=== PATIENT | male | born 1945 | race African-American/Black ===

== ENCOUNTER 2019-05-03 16:55 | Inpatient (IN) | payer MEDICARE, OTHER ==
--- NOTE | 2019-05-03 17:03 | ER Document Report ---
ED Medical Screen (RME) - General Chief Complaint: Abnormal Lab Results Stated Complaint: ABNORMAL LABS Time Seen by Provider: 05/03/19 17:01 Mode of Arrival: Ambulatory Information source: Patient Notes: 78-year-old male presented to ED for abnormal labs. He was sent over here for a low H&H. He states that he was told he needed to come to the emergency room to possibly get blood. Patient is alert and oriented respirations regular nonlabored speaking in full sentences. He states he has not seen any blood when he urinates or has bowel movements. Patient had blood work done in the triage and then be seen by 1 of the providers. I have greeted and performed a rapid initial assessment of this patient. A comprehensive ED assessment and evaluation of the patient, analysis of test results and completion of medical decision making process will be conducted by an additional ED providers. TRAVEL OUTSIDE OF THE [place] IN LAST 30 DAYS: No - Related Data Allergies/Adverse Reactions: No Known Allergies Allergy (Verified 02/25/18 11:47) Past Medical History - Past Medical History Cardiac Medical History: Reports: Hx Heart Attack, Hx Hypertension Renal/ Medical History: Denies: Hx Peritoneal Dialysis Psychiatric Medical History: Denies: Hx Depression Past Surgical History: Reports: Hx Orthopedic Surgery - right leg - Immunizations Hx Diphtheria, Pertussis, Tetanus Vaccination: Yes Physical Exam - Vital signs Vitals: Temp Pulse Resp BP Pulse Ox 97.5 F 88 16 119/48 L 100 05/03/19 16:59 05/03/19 16:59 05/03/19 16:59 05/03/19 16:59 05/03/19 16:59 Course - Vital Signs Vital signs: Temp Pulse Resp BP Pulse Ox 97.5 F 88 16 119/48 L 100 05/03/19 16:59 05/03/19 16:59 05/03/19 16:59 05/03/19 16:59 05/03/19 16:59
[2019-05-03 17:52] LABS: HEMATOCRIT 19.9 % (37.9-51.0); MEAN CORPUSCULAR HEMOGLOBIN 17.9 pg (27.0-33.4); MEAN CORPUSCULAR HGB CONC 28.7 g/dL (32.0-36.0); PLATELET COUNT 457 10^3/uL (150-450); RED BLOOD COUNT 3.19 10^6/uL (4.35-5.55); RED CELL DISTRIBUTION WIDTH 24.3 % (11.5-14.0); WHITE BLOOD COUNT 8.9 10^3/uL (4.0-10.5)
[2019-05-03 17:56] LABS: HEMOGLOBIN 5.7 g/dL (13.5-17.0)
[2019-05-03] MEDS ORDERED: NORMAL SALINE 250 ML IV PRN (18:04)
--- NOTE | 2019-05-03 18:06 | ER Document Report ---
ED General - General Chief Complaint: Abnormal Lab Results Stated Complaint: ABNORMAL LABS Time Seen by Provider: 05/03/19 17:01 Mode of Arrival: Ambulatory TRAVEL OUTSIDE OF THE [place] IN LAST 30 DAYS: No - HPI Patient complains to provider of: abnormal labs Onset: This morning - pt. had labs done in [place] yesterday and was called today to go to the ED as his blood levels were low. - Related Data Allergies/Adverse Reactions: No Known Allergies Allergy (Verified 05/03/19 17:03) Past Medical History - General Information source: Patient - Social History Smoking Status: Current Every Day Smoker Chew tobacco use (# tins/day): No Frequency of alcohol use: None Drug Abuse: None Family History: DM, Hypertension Patient has suicidal ideation: No Patient has homicidal ideation: No - Past Medical History Cardiac Medical History: Reports: Hx Heart Attack, Hx Hypertension Renal/ Medical History: Denies: Hx Peritoneal Dialysis Psychiatric Medical History: Denies: Hx Depression Past Surgical History: Reports: Hx Orthopedic Surgery - right leg - Immunizations Hx Diphtheria, Pertussis, Tetanus Vaccination: Yes Review of Systems - Review of Systems Constitutional: No symptoms reported EENT: No symptoms reported Cardiovascular: No symptoms reported Respiratory: No symptoms reported Gastrointestinal: No symptoms reported Musculoskeletal: No symptoms reported Neurological/Psychological: No symptoms reported -: Yes All other systems reviewed and negative Physical Exam - Vital signs Vitals: Temp Pulse Resp BP Pulse Ox 97.5 F 88 16 119/48 L 100 05/03/19 16:59 05/03/19 16:59 05/03/19 16:59 05/03/19 16:59 05/03/19 16:59 - General General appearance: Appears well In distress: None - HEENT Head: Normocephalic Pupils: PERRL Pharynx: Normal Neck: Normal - Respiratory Respiratory status: No respiratory distress Breath sounds: Normal - Cardiovascular Rhythm: Regular Heart sounds: Normal auscultation Murmur: No - Abdominal Bowel sounds: Normal Tenderness: Nontender - Rectal Tenderness: No Stool: Heme positive Hemorrhoids: None Prostate: Normal - Extremities General upper extremity: Normal inspection General lower extremity: Normal inspection - Neurological Neuro grossly intact: Yes Cognition: Normal Orientation: AAOx4 Speech: Normal Course - Re-evaluation Re-evalutation: 05/03/19 18:17 pt's exam unchanged from priors -- the lab called and said pt's Hgb was 5.7. I will order blood for this pt. and call hospitalist for admission. - Vital Signs Vital signs: Temp Pulse Resp BP Pulse Ox 97.5 F 88 18 122/83 100 05/03/19 16:59 05/03/19 16:59 05/03/19 18:01 05/03/19 18:01 05/03/19 18:01 05/03/19 18:45 I have spoken to Dr. Monk and he will admit the pt - Laboratory Result Diagrams: 05/03/19 17:24 05/03/19 17:24 Laboratory results interpreted by me: 05/03/19 05/03/19 05/03/19 17:24 17:24 17:24 RBC 3.19 L Hgb 5.7 L Hct 19.9 L MCV 62 L MCH 17.9 L MCHC 28.7 L RDW 24.3 H Plt Count 457 H AST 15 L Alkaline Phosphatase 139 H Crossmatch See Detail - EKG Interpretation by Nv EKG shows normal: Sinus rhythm Rate: Normal Rhythm: NSR - nsr without acute change - Consults tzach monk Time consulted: 18:47 Consulted provider: will come to ER Critical Care Note - Critical Care Note Total time excluding time spent on procedures (mins): 30 Discharge - Discharge Clinical Impression: Severe anemia Condition: Fair Disposition: ADMITTED OBSERVATION Admitting Provider: Aleshia (Hospitalist) Unit Admitted: Medical Floor
[2019-05-03 18:18] LABS: ABSOLUTE LYMPHOCYTES# (MANUAL) 2.7 10^3/uL (0.5-4.7); ANISOCYTOSIS 3+; BASOPHILS % (MANUAL) 2 % (0-2); EOSINOPHILS % (MANUAL) 6 % (0-6); HYPOCHROMASIA 3+; LYMPHOCYTES % (MANUAL) 29 % (13-45); MONOCYTES % (MANUAL) 11 % (3-13); PLATELET COMMENT INCREASED; SEGMENTED NEUTROPHILS % (MAN) 51 % (42-78); TARGET CELLS 1+; TOTAL CELLS COUNTED 100
[2019-05-03 18:20] LABS: MEAN CORPUSCULAR VOLUME 62 fl (80-97)
[2019-05-03 18:26] LABS: ALBUMIN 4.1 g/dL (3.5-5.0); ALKALINE PHOSPHATASE 139 U/L (38-126); ANION GAP 10 (5-19); ASPARTATE AMINO TRANSFERASE 15 U/L (17-59); BILIRUBIN,DIRECT 0.1 mg/dL (0.0-0.4); BILIRUBIN,TOTAL 0.5 mg/dL (0.2-1.3); BLOOD UREA NITROGEN 19 mg/dL (7-20); CALCIUM 9.1 mg/dL (8.4-10.2); CARBON DIOXIDE 25 mmol/L (22-30); CHLORIDE 105 mmol/L (98-107); GLUCOSE 97 mg/dL (75-110); POTASSIUM 4.9 mmol/L (3.6-5.0); TOTAL PROTEIN 7.5 g/dL (6.3-8.2)
[2019-05-03] MEDS ORDERED: OXYCODONE-ACETAMINOPHEN 5-325 MG TABLET PO PRN (18:44)
[2019-05-03] MEDS ORDERED: ONDANSETRON HCL INJ/PF 4 MG/2 ML SDV IV PRN (18:44)
[2019-05-03] MEDS ORDERED: ACETAMINOPHEN 325 MG TABLET PO PRN (18:44)
--- NOTE | 2019-05-03 18:54 | PDOC H&P ---
History of Present Illness History of Present Illness: LOLY KAMINSKI is a 73 year old male past medical history of COPD, hypertension, sent to ED by home health for evaluation of abnormal labs. Patient endorsing history of melena for the last year, but has not been evaluated by GI and is not on supplemental ferrous sulfate. He is stating that he had an upper GI endoscopy several years ago and was told it was negative. He is denying any personal or family history of GI malignancy. He is endorsing some weight changes but dnies any, fever, chills, nausea, vomiting, diarrhea, constipation or any urinary symptoms, hematemesis, hemoptysis, nosebleeds, hematuria or hematochezia. In ED he was found to have a hemoglobin of 5.7. Blood Hemoccult positive. Hospitalist consulted for admission. Past Medical History Cardiac Medical History: Reports: Myocardial Infarction, Hypertension Psychiatric Medical History: Denies: Depression Past Surgical History Past Surgical History: Reports: Orthopedic Surgery - right leg Social History Smoking Status: Current Every Day Smoker Electronic Cigarette use?: No Frequency of Alcohol Use: None Hx Recreational Drug Use: No Drugs: None Hx Prescription Drug Abuse: No Family History Family History: DM, Hypertension Parental Family History Reviewed: Yes Children Family History Reviewed: Yes Sibling(s) Family History Reviewed.: Yes Medication/Allergy Home Medications: Amoxicillin/Potassium Clav [Augmentin 500-125 Tablet] 1 each PO TID 4 Days #12 tablet 03/04/18 Azithromycin [Zithromax 250 mg Tablet] 500 mg PO QPM #3 tablet 03/04/18 Clopidogrel Bisulfate [Plavix 75 mg Tablet] 75 mg PO DAILY #30 tablet 03/04/18 Famotidine [Pepcid 20 mg Tablet] 20 mg PO Q12 #60 tablet 03/04/18 Lisinopril [Prinivil 5 mg Tablet] 2.5 mg PO Q12 #60 tablet 03/04/18 Metoprolol Tartrate [Lopressor 50 mg Tablet] 50 mg PO Q12 #60 tablet 03/04/18 Allergies/Adverse Reactions: No Known Allergies Allergy (Verified 05/03/19 17:03) Review of Systems Review of Systems: as per hpi Physical Exam Vital Signs: Temp Pulse Resp BP Pulse Ox 97.5 F 88 18 122/83 100 05/03/19 16:59 05/03/19 16:59 05/03/19 18:01 05/03/19 18:01 05/03/19 18:01 Intake & Output 05/02/19 05/03/19 05/04/19 06:59 06:59 06:59 Weight 46.1 kg General appearance: PRESENT: no acute distress, thin, well-nourished Head exam: PRESENT: atraumatic, normocephalic Eye exam: PRESENT: conjunctiva pink, EOMI, PERRLA. ABSENT: scleral icterus Ear exam: PRESENT: normal external ear exam Mouth exam: PRESENT: moist, tongue midline Neck exam: ABSENT: carotid bruit, JVD, lymphadenopathy, thyromegaly Respiratory exam: PRESENT: clear to auscultation yoile. ABSENT: rales, rhonchi, wheezes Cardiovascular exam: PRESENT: RRR. ABSENT: diastolic murmur, rubs, systolic murmur Pulses: PRESENT: normal dorsalis pedis pul Vascular exam: PRESENT: normal capillary refill GI/Abdominal exam: PRESENT: normal bowel sounds, soft. ABSENT: distended, guarding, mass, organolmegaly, rebound, tenderness Rectal exam: PRESENT: deferred Extremities exam: PRESENT: full ROM. ABSENT: calf tenderness, clubbing, pedal edema Neurological exam: PRESENT: alert, awake, oriented to person, oriented to place, oriented to time, oriented to situation, CN II-XII grossly intact. ABSENT: motor sensory deficit Psychiatric exam: PRESENT: appropriate affect, normal mood. ABSENT: homicidal ideation, suicidal ideation Skin exam: PRESENT: dry, intact, warm. ABSENT: cyanosis, rash Results Laboratory Results: 05/03/19 17:24 05/03/19 17:24 05/03/19 05/03/19 05/03/19 17:24 17:24 17:24 WBC 8.9 RBC 3.19 L Hgb 5.7 L Hct 19.9 L MCV 62 L MCH 17.9 L MCHC 28.7 L RDW 24.3 H Plt Count 457 H Seg Neutrophils % Not Reportable Sodium 140.2 Potassium 4.9 Chloride 105 Carbon Dioxide 25 Anion Gap 10 BUN 19 Creatinine 0.93 Est GFR ( Amer) > 60 Glucose 97 Calcium 9.1 Total Bilirubin 0.5 AST 15 L Alkaline Phosphatase 139 H Total Protein 7.5 Albumin 4.1 Blood Type O POSITIVE Antibody Screen NEGATIVE Assessment and Plan - Diagnosis (1) Severe anemia Is this a current diagnosis for this admission?: Yes Plan: Likely due to upper GI bleed. Denies any history of malignancy. Endorsing weight changes. Admit to [facility], PRBC transfusion, volume resuscitation, consult surgery/GI for upper and lower GI endoscopy. (2) COPD (chronic obstructive pulmonary disease) Is this a current diagnosis for this admission?: Yes Plan: Not on home O2. Does not seem to be acutely exacerbated. SPO2 within normal limits on room air. Supplemental oxygen, PRN DuoNeb's. (3) Hypertension Qualifiers: Is this a current diagnosis for this admission?: Yes Plan: Euvolemic. Normotensive. Monitor vitals. Home meds are metoprolol and lisinopril. Heart home meds. Adjust meds as needed. Follow-up with PCP. (4) Tobacco abuse Is this a current diagnosis for this admission?: Yes Plan: Counseled on quitting. NicoDerm patch provided.
[2019-05-03] MEDS: IPRATROPIUM/ALBUTEROL 0.5-2.5 MG/3 ML AMPUL NEB SCH (20:28)
[2019-05-03] MEDS: NORMAL SALINE 1000 ML 1,000 ML IV PRN (21:20)
[2019-05-03] MEDS: PANTOPRAZOLE SODIUM 40 MG VIAL IV SCH (23:19)
[2019-05-04 02:37] LABS: HEMATOCRIT 28.5 % (37.9-51.0); MEAN CORPUSCULAR HEMOGLOBIN 22.7 pg (27.0-33.4); MEAN CORPUSCULAR HGB CONC 31.7 g/dL (32.0-36.0); PLATELET COUNT 331 10^3/uL (150-450); RED BLOOD COUNT 3.98 10^6/uL (4.35-5.55); RED CELL DISTRIBUTION WIDTH 29.9 % (11.5-14.0); WHITE BLOOD COUNT 8.2 10^3/uL (4.0-10.5)
[2019-05-04 02:41] LABS: MEAN CORPUSCULAR VOLUME 72 fl (80-97)
[2019-05-04 03:04] LABS: ABSOLUTE LYMPHOCYTES# (MANUAL) 1.8 10^3/uL (0.5-4.7); ABSOLUTE MONOCYTES # (MANUAL) 0.3 10^3/uL (0.1-1.4); BAND NEUTROPHILS % (MANUAL) 3 % (3-5); BASOPHILS % (MANUAL) 0 % (0-2); EOSINOPHILS % (MANUAL) 2 % (0-6); LYMPHOCYTES % (MANUAL) 22 % (13-45); MONOCYTES % (MANUAL) 4 % (3-13); SEGMENTED NEUTROPHILS % (MAN) 69 % (42-78); TOTAL CELLS COUNTED 100
[2019-05-04 03:09] LABS: HYPOCHROMASIA 2+
[2019-05-04 03:10] LABS: ANISOCYTOSIS 4+; BURR CELLS SLIGHT; OVALOCYTES SLIGHT; POIKILOCYTOSIS SLIGHT; SCHISTOCYTES SLIGHT; TEAR DROP CELLS SLIGHT
[2019-05-04 03:11] LABS: PLATELET COMMENT ADEQUATE
[2019-05-04] MEDS: NORMAL SALINE 1000 ML 1,000 ML IV PRN (05:35)
[2019-05-04 06:44] LABS: HEMATOCRIT 27.9 % (37.9-51.0); HEMOGLOBIN 8.9 g/dL (13.5-17.0); MEAN CORPUSCULAR HEMOGLOBIN 22.9 pg (27.0-33.4); MEAN CORPUSCULAR HGB CONC 32.1 g/dL (32.0-36.0); MEAN CORPUSCULAR VOLUME 71 fl (80-97); PLATELET COUNT 319 10^3/uL (150-450); RED CELL DISTRIBUTION WIDTH 29.3 % (11.5-14.0); WHITE BLOOD COUNT 10.2 10^3/uL (4.0-10.5)
[2019-05-04 06:48] LABS: INTERNATIONAL RATION (INR) 1.04; PROTHROMBIN TIME 13.6 SEC (11.4-15.4)
[2019-05-04 07:07] LABS: ALBUMIN 3.5 g/dL (3.5-5.0); ALKALINE PHOSPHATASE 116 U/L (38-126); ANION GAP 8 (5-19); ASPARTATE AMINO TRANSFERASE 14 U/L (17-59); BILIRUBIN,DIRECT 0.2 mg/dL (0.0-0.4); BLOOD UREA NITROGEN 15 mg/dL (7-20); CALCIUM 8.8 mg/dL (8.4-10.2); CARBON DIOXIDE 23 mmol/L (22-30); CHLORIDE 111 mmol/L (98-107); POTASSIUM 5.2 mmol/L (3.6-5.0); TOTAL PROTEIN 6.7 g/dL (6.3-8.2)
[2019-05-04 07:10] LABS: ABSOLUTE LYMPHOCYTES# (MANUAL) 1.5 10^3/uL (0.5-4.7); ABSOLUTE MONOCYTES # (MANUAL) 0.4 10^3/uL (0.1-1.4); BASOPHILS % (MANUAL) 0 % (0-2); EOSINOPHILS % (MANUAL) 2 % (0-6); GLUCOSE 68 mg/dL (75-110); LYMPHOCYTES % (MANUAL) 15 % (13-45); MONOCYTES % (MANUAL) 4 % (3-13); SEGMENTED NEUTROPHILS % (MAN) 79 % (42-78); TOTAL CELLS COUNTED 100
[2019-05-04 07:12] LABS: HYPOCHROMASIA 2+; POLYCHROMASIA 1+
[2019-05-04 07:13] LABS: ANISOCYTOSIS 4+; PLATELET COMMENT ADEQUATE; POIKILOCYTOSIS SLIGHT; TARGET CELLS SLIGHT; TEAR DROP CELLS SLIGHT
[2019-05-04] MEDS: IPRATROPIUM/ALBUTEROL 0.5-2.5 MG/3 ML AMPUL NEB SCH ×4 (07:38→20:12)
[2019-05-04 09:20] LABS: PATH REVIEW PATHOLOGIST REVIEWED
[2019-05-04] MEDS ORDERED: DEXTROSE 40% GEL 15 GM TUBE PO PRN ×2 (12:10)
[2019-05-04] MEDS ORDERED: DEXTROSE 50%-WATER 25 GM/50 ML DISP.SYRIN IV PRN ×2 (12:10)
[2019-05-04] MEDS ORDERED: GLUCAGON,HUMAN RECOMB 1 MG INJ SUBCUT PRN (12:10)
--- NOTE | 2019-05-04 12:23 | PDOC CONSULTATION ---
Consultation Consult Date: 05/04/19 Provider Consulted: ALEXANDRA MARSH Consult reason:: anemia due to GI bleed History of Present Illness Admission Date/PCP: 05/03/19 18:51 History of Present Illness: LOLY KAMINSKI is a 73 year old male who had a history of CT last year and was given beta-masoud and Plavix. He claims he never check his stool but apparently has some melena for quite some time. He had a near syncopal episode about a week ago. He went to his primary physician who did a blood test and noted that hemoglobin was low and sent to the ED. He admits to having loss of weight of about 13 pounds from last year. Otherwise he claims he feels good. His stool is Hemoccult positive. He denies any abdominal pains nausea or vomiting. Past Medical History Cardiac Medical History: Reports: Myocardial Infarction, Hypertension Psychiatric Medical History: Denies: Depression Past Surgical History Past Surgical History: Reports: Orthopedic Surgery - right leg Social History Smoking Status: Current Every Day Smoker Electronic Cigarette use?: No Frequency of Alcohol Use: None Hx Recreational Drug Use: No Drugs: None Hx Prescription Drug Abuse: No Family History Family History: DM, Hypertension Parental Family History Reviewed: Yes Children Family History Reviewed: No Sibling(s) Family History Reviewed.: No Medication/Allergy Home Medications: Clopidogrel Bisulfate [Plavix 75 mg Tablet] 75 mg PO DAILY #30 tablet 03/04/18 Metoprolol Tartrate [Lopressor 50 mg Tablet] 50 mg PO Q12 #60 tablet 03/04/18 Lisinopril [Prinivil 5 mg Tablet] 5 mg PO DAILY 05/03/19 Allergies/Adverse Reactions: No Known Allergies Allergy (Verified 05/03/19 17:03) Review of Systems Constitutional: PRESENT: as per HPI Cardiovascular: PRESENT: other - No chest pains Respiratory: PRESENT: cough - Mild cough Gastrointestinal: PRESENT: melena Neurological: PRESENT: other - Complaint of lightheadedness about a week ago when the had a near syncopal episode Physical Exam Vital Signs: Temp Pulse Resp BP Pulse Ox 97.6 F 83 16 126/54 H 100 05/04/19 03:10 05/04/19 11:36 05/04/19 11:36 05/04/19 03:10 05/04/19 11:36 Intake & Output 05/03/19 05/04/19 05/05/19 06:59 06:59 06:59 Intake Total 1125 Output Total 400 Balance 725 Weight 44.5 kg General appearance: PRESENT: no acute distress Head exam: PRESENT: atraumatic Eye exam: PRESENT: conjunctiva pale Mouth exam: PRESENT: moist Neck exam: PRESENT: full ROM Respiratory exam: PRESENT: clear to auscultation yolie Cardiovascular exam: PRESENT: RRR Pulses: PRESENT: normal radial pulses Vascular exam: PRESENT: normal capillary refill GI/Abdominal exam: PRESENT: soft - Nontender Rectal exam: PRESENT: deferred Extremities exam: PRESENT: full ROM Musculoskeletal exam: PRESENT: ambulatory Neurological exam: PRESENT: alert, oriented to person, oriented to place, oriented to time, oriented to situation Psychiatric exam: PRESENT: appropriate affect Results Laboratory Results: 05/04/19 06:27 05/04/19 06:27 05/03/19 05/03/19 05/03/19 17:24 17:24 17:24 WBC 8.9 RBC 3.19 L Hgb 5.7 L Hct 19.9 L MCV 62 L MCH 17.9 L MCHC 28.7 L RDW 24.3 H Plt Count 457 H Seg Neutrophils % Not Reportable Sodium 140.2 Potassium 4.9 Chloride 105 Carbon Dioxide 25 Anion Gap 10 BUN 19 Creatinine 0.93 Est GFR ( Amer) > 60 Glucose 97 Calcium 9.1 Magnesium Total Bilirubin 0.5 AST 15 L Alkaline Phosphatase 139 H Total Protein 7.5 Albumin 4.1 Blood Type O POSITIVE Antibody Screen NEGATIVE 05/04/19 05/04/19 05/04/19 02:08 06:27 06:27 WBC 8.2 10.2 RBC 3.98 L 3.90 L Hgb 9.0 L D 8.9 L Hct 28.5 L 27.9 L MCV 72 L D 71 L MCH 22.7 L 22.9 L MCHC 31.7 L 32.1 RDW 29.9 H 29.3 H Plt Count 331 319 Seg Neutrophils % Not Reportable Not Reportable Sodium 142.3 Potassium 5.2 H Chloride 111 H Carbon Dioxide 23 Anion Gap 8 BUN 15 Creatinine 0.81 Est GFR ( Amer) > 60 Glucose 68 L Calcium 8.8 Magnesium 2.3 Total Bilirubin 3.0 H D AST 14 L Alkaline Phosphatase 116 Total Protein 6.7 Albumin 3.5 Blood Type Antibody Screen 05/03/19 17:24 Troponin I < 0.012 Assessment & Plan - Diagnosis (1) Anemia Is this a current diagnosis for this admission?: Yes (2) GI bleed Is this a current diagnosis for this admission?: Yes (3) Hypertension Qualifiers: Is this a current diagnosis for this admission?: Yes - Time Time Spent: 30 to 50 Minutes - Inpatient Certification Medical Necessity: Need Close Monitoring Due to Risk of Patient Decompensation, Need for Surgery - Plan Summary Plan Summary: There is a 73-year-old -[place] male with history of hypertension and CT on beta-masoud and Plavix. He came in for anemia and an episode of near syncope. Otherwise is essentially asymptomatic. However his stool was positive for Hemoccult and apparently has been having melena for quite some time. He denies any abdominal pains or history of ulcers in the past. He admits to having weight loss of about 13 pounds since he was diagnosed stopped CT about a year ago. Plans: I spoke to Dr. Vásquez who will do his upper and lower endoscopy tomorrow. His Plavix was also stopped. His last dose was yesterday before coming to the hospital. Further plans according to endoscopic findings.
[2019-05-04] MEDS: LISINOPRIL 5 MG TABLET PO SCH (12:49)
[2019-05-04] MEDS: METOPROLOL SUCCINATE 50 MG TAB.SR.24H PO SCH (12:50)
[2019-05-04] MEDS: PANTOPRAZOLE SODIUM 40 MG VIAL IV SCH ×2 (12:53→20:59)
--- NOTE | 2019-05-04 14:41 | PDOC PROGRESS REPORT ---
Subjective Progress Note for:: 05/04/19 Subjective:: No adverse events overnight. No new complaints. Vital signs been stable. No abdominal pain. No hematemesis, melena, or hematochezia. Reason For Visit: SEVERE ANEMIA Physical Exam Vital Signs: Temp Pulse Resp BP Pulse Ox 97.6 F 83 16 126/54 H 100 05/04/19 03:10 05/04/19 11:36 05/04/19 11:36 05/04/19 03:10 05/04/19 11:36 Intake & Output 05/03/19 05/04/19 05/05/19 06:59 06:59 06:59 Intake Total 1125 360 Output Total 400 Balance 725 360 Weight 44.5 kg General appearance: PRESENT: no acute distress, cooperative, disheveled, thin Teeth exam: PRESENT: poor dentation Respiratory exam: PRESENT: clear to auscultation yolie, symmetrical, unlabored. A BSENT: accessory muscle use, chest wall tenderness, crackles, prolonged expiratory phas, rhonchi, tachypnea, wheezes Cardiovascular exam: PRESENT: RRR, +S1, +S2 Pulses: PRESENT: normal carotid pulses Vascular exam: PRESENT: normal capillary refill GI/Abdominal exam: PRESENT: normal bowel sounds, soft. ABSENT: distended, guarding, rebound, tenderness Extremities exam: ABSENT: clubbing, pedal edema Musculoskeletal exam: PRESENT: normal inspection. ABSENT: deformity Neurological exam: PRESENT: alert, awake, oriented to person, oriented to place, oriented to situation Psychiatric exam: PRESENT: appropriate affect, normal mood Skin exam: PRESENT: dry, warm Results Laboratory Results: 05/04/19 06:27 05/04/19 06:27 05/03/19 05/03/19 05/03/19 17:24 17:24 17:24 WBC 8.9 RBC 3.19 L Hgb 5.7 L Hct 19.9 L MCV 62 L MCH 17.9 L MCHC 28.7 L RDW 24.3 H Plt Count 457 H Seg Neutrophils % Not Reportable Sodium 140.2 Potassium 4.9 Chloride 105 Carbon Dioxide 25 Anion Gap 10 BUN 19 Creatinine 0.93 Est GFR ( Amer) > 60 Glucose 97 Calcium 9.1 Magnesium Total Bilirubin 0.5 AST 15 L Alkaline Phosphatase 139 H Total Protein 7.5 Albumin 4.1 Blood Type O POSITIVE Antibody Screen NEGATIVE 05/04/19 05/04/19 05/04/19 02:08 06:27 06:27 WBC 8.2 10.2 RBC 3.98 L 3.90 L Hgb 9.0 L D 8.9 L Hct 28.5 L 27.9 L MCV 72 L D 71 L MCH 22.7 L 22.9 L MCHC 31.7 L 32.1 RDW 29.9 H 29.3 H Plt Count 331 319 Seg Neutrophils % Not Reportable Not Reportable Sodium 142.3 Potassium 5.2 H Chloride 111 H Carbon Dioxide 23 Anion Gap 8 BUN 15 Creatinine 0.81 Est GFR ( Amer) > 60 Glucose 68 L Calcium 8.8 Magnesium 2.3 Total Bilirubin 3.0 H D AST 14 L Alkaline Phosphatase 116 Total Protein 6.7 Albumin 3.5 Blood Type Antibody Screen 05/03/19 17:24 Troponin I < 0.012 Assessment and Plan - Diagnosis (1) Anemia Qualifiers: Anemia type: other cause Other causes of anemia: other cause, not classified Qualified Code(s): D64.89 - Other specified anemias Is this a current diagnosis for this admission?: Yes Plan: Hemoglobin stable status post blood transfusion, suspected to be due to low level GI bleeding. Plavix is on hold. When he was put on it last year, it was because they thought he had a non-ST elevation AL, but stress testing was completely normal. They opted for medical management staying on Plavix for a while and then at least aspirin or Plavix indefinitely. He has been on Plavix the whole time. He should be able to take a baby aspirin every day once this is over with instead of the Plavix. (2) GI bleed Qualifiers: GI bleed type/associated pathology: unspecified gastrointestinal hemorrhage type Qualified Code(s): K92.2 - Gastrointestinal hemorrhage, unspecified Is this a current diagnosis for this admission?: Yes Plan: Surgery consult has deferred to GI, that consultation is pending. - Time Time Spent with patient: 15-24 minutes
[2019-05-04] MEDS ORDERED: PEG 3350/NA SULF,BICARB,CL/KCL 4000 ML PO ONE (15:00)
--- NOTE | 2019-05-04 20:27 | Progress Note ---
Provider Note Provider Note: Called by Dr Harrington patient admitted to Hospitalist service has anemia, possible blood loss weight loss and heme positive stools agree that patient will need EGD and colonoscopy Since Dr Harrington does not perform will schedule procedures with myself for tomorrow Dr Harrington is writing for prep orders further recommendations to follow
--- NOTE | 2019-05-05 00:01 | EKG REPORT ---
SEVERITY:- ABNORMAL ECG - SINUS RHYTHM PROBABLE ANTEROSEPTAL INFARCT, AGE INDETERM : Confirmed by: Lorena Frank 05-May-2019 00:00:46
[2019-05-05] MEDS: NORMAL SALINE 1000 ML 1,000 ML IV PRN (02:50)
[2019-05-05 05:58] LABS: HEMATOCRIT 29.2 % (37.9-51.0); HEMOGLOBIN 8.9 g/dL (13.5-17.0); MEAN CORPUSCULAR HEMOGLOBIN 21.9 pg (27.0-33.4); MEAN CORPUSCULAR HGB CONC 30.4 g/dL (32.0-36.0); MEAN CORPUSCULAR VOLUME 72 fl (80-97); PLATELET COUNT 308 10^3/uL (150-450); RED BLOOD COUNT 4.07 10^6/uL (4.35-5.55); RED CELL DISTRIBUTION WIDTH 29.9 % (11.5-14.0); WHITE BLOOD COUNT 11.3 10^3/uL (4.0-10.5)
[2019-05-05 06:32] LABS: ABSOLUTE LYMPHOCYTES# (MANUAL) 1.2 10^3/uL (0.5-4.7); ABSOLUTE MONOCYTES # (MANUAL) 0.8 10^3/uL (0.1-1.4); BASOPHILS % (MANUAL) 0 % (0-2); EOSINOPHILS % (MANUAL) 6 % (0-6); LYMPHOCYTES % (MANUAL) 11 % (13-45); MONOCYTES % (MANUAL) 7 % (3-13); NUCLEATED RED BLOOD CELLS 1 /100 WBC (0); SEGMENTED NEUTROPHILS % (MAN) 76 % (42-78); TOTAL CELLS COUNTED 100
[2019-05-05 06:33] LABS: ANISOCYTOSIS 4+; HYPOCHROMASIA 1+; POLYCHROMASIA 1+
[2019-05-05 06:34] LABS: HOWELL-JOLLY BODIES PRESENT; PLATELET COMMENT ADEQUATE
[2019-05-05] MEDS: IPRATROPIUM/ALBUTEROL 0.5-2.5 MG/3 ML AMPUL NEB SCH ×3 (08:06→16:09)
[2019-05-05] MEDS ORDERED: DIPHENHYDRAMINE HCL 50 MG/ML VIAL ONE (12:23)
[2019-05-05] MEDS ORDERED: ONDANSETRON HCL INJ/PF 4 MG/2 ML SDV ONE (12:23)
[2019-05-05] MEDS ORDERED: EPINEPHRINE INJ 1 MG/10 ML DISP.SYRIN ONE (12:24)
[2019-05-05] MEDS ORDERED: FLUMAZENIL INJ 0.5 MG/5 ML VIAL ONE (12:24)
[2019-05-05] MEDS ORDERED: GLUCAGON,HUMAN RECOMB 1 MG INJ ONE (12:24)
[2019-05-05] MEDS ORDERED: NALOXONE HCL INJ/PF 0.4 MG/1 ML SDV ONE (12:24)
[2019-05-05] MEDS: MIDAZOLAM 2 MG/2 ML INJ ONE ×2 (12:30→12:39)
[2019-05-05] MEDS: FENTANYL CITRATE INJ/PF 100 MCG/2 ML AMPUL ONE ×2 (12:32→12:33)
--- NOTE | 2019-05-05 12:52 | Operative Report ---
Operative Report DATE OF SURGERY: 05/05/19 Operative Report: The risks, benefits and alternatives of the procedure including the risk of bleeding, perforation requiring surgery have been explained to the patient in detail and informed consent has been obtained. Patient is taken back to the endoscopy suite placed in the left, lateral decubital position. Conscious sedation medications are provided. Rectal examination is done which did not reveal any masses, tears or fissures. An Olympus videoscope was introduced into the patient's rectum. The scope was then carefully advanced all the way to the cecum. Cecum was identified by the usual anatomical landmarks of the ileocecal valve as well as the appendiceal office. Photodocumentation is obtained the scope was then sequentially pulled back via the various segments of the colon including the ascending colon, hepatic flexure, transverse colon, splenic flexur e, descending colon finding to the rectosigmoid portions of the colon. Retroflexion maneuvers performed. The risks benefits and alternatives of the procedure explained to the patient in detail and informed consent is obtained.A GIF Olympus video scope was inserted into the patient's mouth and hypopharynx, the esophagus is identified intubated and insufflated ,the scope was then advanced through the esophagus stomach and duodenum ,retroflexion maneuver is done ,the esophagus stomach and first and second portions of the duodenum examined. PREOPERATIVE DIAGNOSIS: Possible GI bleeding POSTOPERATIVE DIAGNOSIS: Right colon inflammation status post biopsy. Internal hemorrhoids. 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 EGD with ablation. AVMs are likely causing the GI bleeding SURGEON: ALAINA STERLING ANESTHESIA: Moderate Sedation - 4 mg of Versed, 50 mcg of fentanyl. Conscious sedation monitoring time 30 minutes. TISSUE REMOVED OR ALTERED: As noted above. COMPLICATIONS: None. ESTIMATED BLOOD LOSS: None. INTRAOPERATIVE FINDINGS: As noted above. PROCEDURE: Patient tolerated the procedure well. No immediate postprocedure complications are noted. Patient is sent back to his room in good condition. Follow-up H&H Resume regular diet Resume regular activity level outpatient follow-up as needed
--- NOTE | 2019-05-05 14:13 | PDOC DISCHARGE SUMMARY ---
Impression - Admit/DC Date/PCP Admission Date/Primary Care Provider: 05/04/19 14:43 Discharge Date: 05/05/19 - Discharge Diagnosis (1) Anemia Is this a current diagnosis for this admission?: Yes (2) GI bleed Is this a current diagnosis for this admission?: Yes - Additional Information Resuscitation Status: Full Code Discharge Diet: Cardiac Discharge Activity: Activity As Tolerated Referrals: CHER NELSON MD [ACTIVE STAFF] - (1-2 weeks) Home Medications: Metoprolol Tartrate [Lopressor 50 mg Tablet] 50 mg PO Q12 #60 tablet 03/04/18 Lisinopril [Prinivil 5 mg Tablet] 5 mg PO DAILY 05/03/19 History of Present Illiness History of Present Illness: LOLY KAMINSKI is a 73 year old male past medical history of COPD, hypertension, sent to ED by home health for evaluation of abnormal labs. Patient endorsing history of melena for the last year, but has not been evaluated by GI and is not on supplemental ferrous sulfate. He is stating that he had an upper GI endoscopy several years ago and was told it was negative. He is denying any personal or family history of GI malignancy. He is endorsing some weight changes but dnies any, fever, chills, nausea, vomiting, diarrhea, constipation or any urinary symptoms, hematemesis, hemoptysis, nosebleeds, hematuria or hematochezia. In ED he was found to have a hemoglobin of 5.7. Blood Hemoccult positive. Hosp italist consulted for admission. Hospital Course Hospital Course: He discontinued his Plavix and he got a couple units of packed red blood cells. He did not have any more bleeding. He told me today that he took the Plavix for a while and then he stopped taking it and then he started back taking it but he thinks he was taking it twice a day. Apparently he was put on the Plavix last year after he came in for an HI but had a negative stress test and the decision was made to manage him aggressively from a medical standpoint because Dr. Nelson thought he was a poor candidate for a left heart cath. He was supposed to take Plavix and aspirin for about a year, and then come off and take either Plavix or aspirin. He has been taking both recently. He had a colonoscopy and EGD. Colonoscopy was unremarkable, but the EGD showed gastric and duodenal AVMs, which were suspected to be the source of the bleeding. These were ablated. He was instructed to stop taking Plavix altogether, and to just take 1 baby aspirin once a day. He verbalizes understanding. He will follow-up with Dr. Nelson's office in 1 to 2 weeks. His labs and examination were reassuring and he was discharged in good condition. Physical Exam Vital Signs: Temp Pulse Resp BP Pulse Ox 98.0 F 84 18 98/37 L 99 05/05/19 07:57 05/05/19 13:00 05/05/19 13:00 05/05/19 13:00 05/05/19 13:00 Intake & Output 05/04/19 05/05/19 05/06/19 06:59 06:59 06:59 Intake Total 1125 1460 300 Output Total 400 100 Balance 725 1360 300 Weight 44.5 kg 50.9 kg General appearance: PRESENT: no acute distress, cooperative, disheveled, thin Teeth exam: PRESENT: poor dentation Respiratory exam: PRESENT: clear to auscultation yolie, symmetrical, unlabored. ABSENT: accessory muscle use, chest wall tenderness, crackles, prolonged expiratory phas, rhonchi, tachypnea, wheezes Cardiovascular exam: PRESENT: RRR, +S1, +S2 Pulses: PRESENT: normal carotid pulses Vascular exam: PRESENT: normal capillary refill GI/Abdominal exam: PRESENT: normal bowel sounds, soft. ABSENT: distended, guarding, rebound, tenderness Extremities exam: ABSENT: clubbing, pedal edema Musculoskeletal exam: PRESENT: normal inspection. ABSENT: deformity Neurological exam: PRESENT: alert, awake, oriented to person, oriented to place, oriented to situation Psychiatric exam: PRESENT: appropriate affect, normal mood Skin exam: PRESENT: dry, warm Results Laboratory Results: WBC 11.3 10^3/uL (4.0-10.5) H 05/05/19 04:42 RBC 4.07 10^6/uL (4.35-5.55) L 05/05/19 04:42 Hgb 8.9 g/dL (13.5-17.0) L 05/05/19 04:42 Hct 29.2 % (37.9-51.0) L 05/05/19 04:42 MCV 72 fl (80-97) L 05/05/19 04:42 MCH 21.9 pg (27.0-33.4) L 05/05/19 04:42 MCHC 30.4 g/dL (32.0-36.0) L 05/05/19 04:42 RDW 29.9 % (11.5-14.0) H 05/05/19 04:42 Plt Count 308 10^3/uL (150-450) 05/05/19 04:42 Lymph % (Auto) Not Reportable 05/05/19 04:42 [place] % (Auto) Not Reportable 05/05/19 04:42 Eos % (Auto) Not Reportable 05/05/19 04:42 Baso % (Auto) Not Reportable 05/05/19 04:42 Absolute Neuts (auto) Not Reportable 05/05/19 04:42 Absolute Lymphs (auto) Not Reportable 05/05/19 04:42 Absolute Monos (auto) Not Reportable 05/05/19 04:42 Absolute Eos (auto) Not Reportable 05/05/19 04:42 Absolute Basos (auto) Not Reportable 05/05/19 04:42 Total Counted 100 05/05/19 04:42 Seg Neutrophils % Not Reportable 05/05/19 04:42 Seg Neuts % (Manual) 76 % (42-78) 05/05/19 04:42 Band Neutrophils % 3 % (3-5) 05/04/19 02:08 Lymphocytes % (Manual) 11 % (13-45) L 05/05/19 04:42 Atypical Lymphs % 1 % (0) 05/03/19 17:24 Monocytes % (Manual) 7 % (3-13) 05/05/19 04:42 Eosinophils % (Manual) 6 % (0-6) 05/05/19 04:42 Basophils % (Manual) 0 % (0-2) 05/05/19 04:42 Abs Neuts (Manual) 8.6 10^3/uL (1.7-8.2) H 05/05/19 04:42 Abs Lymphs (Manual) 1.2 10^3/uL (0.5-4.7) 05/05/19 04:42 Abs Monocytes (Manual) 0.8 10^3/uL (0.1-1.4) 05/05/19 04:42 Absolute Eos (Manual) 0.7 10^3/uL (0.0-0.6) H 05/05/19 04:42 Abs Basophils (Manual) 0.0 10^3/uL (0.0-0.2) 05/05/19 04:42 Nucleated RBCs 1 /100 WBC (0) 05/05/19 04:42 Platelet Comment ADEQUATE 05/05/19 04:42 Polychromasia 1+ 05/05/19 04:42 Hypochromasia 1+ 05/05/19 04:42 Poikilocytosis SLIGHT 05/04/19 06:27 Basophilic Stippling PRESENT 05/04/19 06:27 Anisocytosis 4+ 05/05/19 04:42 Microcytosis 1+ 05/05/19 04:42 Target Cells SLIGHT 05/04/19 06:27 Tear Drop Cells SLIGHT 05/04/19 06:27 Ovalocytes SLIGHT 05/04/19 02:08 [place] Bodies PRESENT 05/05/19 04:42 [place] Cells SLIGHT 05/04/19 02:08 Schistocytes SLIGHT 05/04/19 02:08 PT 13.6 SEC (11.4-15.4) 05/04/19 06:27 INR 1.04 05/04/19 06:27 Sodium 142.3 mmol/L (137-145) 05/04/19 06:27 Potassium 5.2 mmol/L (3.6-5.0) H 05/04/19 06:27 Chloride 111 mmol/L (98-107) H 05/04/19 06:27 Carbon Dioxide 23 mmol/L (22-30) 05/04/19 06:27 Anion Gap 8 (5-19) 05/04/19 06:27 BUN 15 mg/dL (7-20) 05/04/19 06:27 Creatinine 0.81 mg/dL (0.52-1.25) 05/04/19 06:27 Est GFR ( Amer) > 60 (>60) 05/04/19 06:27 Est GFR (MDRD) Non-Af > 60 (>60) 05/04/19 06:27 Glucose 68 mg/dL (75-110) L 05/04/19 06:27 Calcium 8.8 mg/dL (8.4-10.2) 05/04/19 06:27 Magnesium 2.1 mg/dL (1.6-2.3) 05/05/19 04:42 Total Bilirubin 3.0 mg/dL (0.2-1.3) H D 05/04/19 06:27 Direct Bilirubin 0.2 mg/dL (0.0-0.4) 05/04/19 06:27 Neonat Total Bilirubin Not Reportable 05/04/19 06:27 Neonat Direct Bilirubin Not Reportable 05/04/19 06:27 Neonat Indirect Bili Not Reportable 05/04/19 06:27 AST 14 U/L (17-59) L 05/04/19 06:27 ALT 9 U/L (<50) 05/04/19 06:27 Alkaline Phosphatase 116 U/L (38-126) 05/04/19 06:27 Troponin I < 0.012 ng/mL 05/03/19 17:24 Total Protein 6.7 g/dL (6.3-8.2) 05/04/19 06:27 Albumin 3.5 g/dL (3.5-5.0) 05/04/19 06:27 POC Stool Occult Blood POSITIVE (NEGATIVE) 05/03/19 18:00 Slides for Path Review PATHOLOGIST REVIEWED 05/03/19 17:24 Blood Type O POSITIVE 05/03/19 17:24 Antibody Screen NEGATIVE 05/03/19 17:24 Crossmatch See Detail 05/03/19 17:24 05/03/19 17:24 Troponin I < 0.012 Plan Time Spent: Greater than 30 Minutes Stroke Is this a Stroke Patient?: No Acute Heart Failure - Is this a Heart Failure Patient?: No
[2019-05-05] MEDS: LISINOPRIL 5 MG TABLET PO SCH (17:32)
[2019-05-05] MEDS: METOPROLOL SUCCINATE 50 MG TAB.SR.24H PO SCH (17:33)
[2019-05-05] MEDS: PANTOPRAZOLE SODIUM 40 MG VIAL IV SCH (17:33)
[2019-05-05 17:57] VITALS: BP 157/74
== END 2019-05-05 18:06 | disposition home or self-care (01) | DRG 379 ==
LOC: ER 16:55 → EH 18:51 → 3N 21:10 → OBSVTOIN 05-04 14:43
PROVIDERS: ADMIT Internal Medicine; ATTEND Internal Medicine
PROC: 30233N1 Transfusion of Nonautologous Red Blood Cells into Peripheral Vein, Percutaneous Approach (ICD-10-PCS; 2019-05-03)
PROC: 0D568ZZ Destruction of Stomach, Via Natural or Artificial Opening Endoscopic (ICD-10-PCS; 2019-05-05)
PROC: 0DBF8ZX Excision of Right Large Intestine, Via Natural or Artificial Opening Endoscopic, Diagnostic (ICD-10-PCS; principal; 2019-05-05 12:30)
PROC: 0D598ZZ Destruction of Duodenum, Via Natural or Artificial Opening Endoscopic (ICD-10-PCS; 2019-05-05 12:30)
DX: K92.2 Gastrointestinal hemorrhage, unspecified (principal); I25.2 Old myocardial infarction; I10 Essential (primary) hypertension; F17.200 Nicotine dependence, unspecified, uncomplicated; D50.0 Iron deficiency anemia secondary to blood loss (chronic); Q27.33 Arteriovenous malformation of digestive system vessel; Z79.82 Long term (current) use of aspirin; Z82.49 Family history of ischemic heart disease and other diseases of the circulatory system; R05 Cough; J44.9 Chronic obstructive pulmonary disease, unspecified; Z71.6 Tobacco abuse counseling
CPT/HCPCS: 36415; 36430; 80053; 83735; 84484; 85025; 85610; 86850; 86900; 86901; 86920; 88305; 93005; 93010; 94640; 99291; C9113; G0378; J0171; J1200; J1610; J2250; J2310; J2405; J3010; J3490; J7030; J7620; P9016

== ENCOUNTER 2020-01-02 21:25 | Observation (INO) | payer MEDICARE, OTHER ==
[2020-01-02 21:59] LABS: MEAN CORPUSCULAR HEMOGLOBIN 17.7 pg (27.0-33.4); MEAN CORPUSCULAR HGB CONC 27.6 g/dL (32.0-36.0); RED BLOOD COUNT 2.08 10^6/uL (4.35-5.55); RED CELL DISTRIBUTION WIDTH 25.1 % (11.5-14.0); WHITE BLOOD COUNT 6.9 10^3/uL (4.0-10.5)
[2020-01-02 22:04] LABS: HEMATOCRIT 13.3 % (37.9-51.0)
[2020-01-02] MEDS ORDERED: PANTOPRAZOLE SODIUM 40 MG VIAL IV ONE (22:07)
--- NOTE | 2020-01-02 22:07 | ER Document Report ---
ED General - General Chief Complaint: Chest Pain Stated Complaint: CHEST PAIN Time Seen by Provider: 01/02/20 21:36 TRAVEL OUTSIDE OF THE [place] IN LAST 30 DAYS: No - HPI Notes: Chief complaint: Chest pain HPI: 74-year-old male with past history of IA currently with no primary care doctor presenting via EMS for evaluation of chest pain. Patient says he was watching TV at home tonight when he suddenly had a sharp pain in the center of his chest. This lasted for less than 10 minutes. He says he got up and drank some water and when he sat down in front of the TV again he had recurrence of discomfort. At that point he called EMS. He denies nausea, vomiting, radiation of his pain, diaphoresis or dyspnea. This gentleman says he takes aspirin daily but was taken off Plavix last year when he had a GI bleed and required transfusion. He was previously on antihypertensive medication but says he does not recall name of this and his run out of the medicine and therefore is no longer taking it. He took some sort of a lipid-lowering agent in the past but is no longer taking this either. He is 1/2 pack/day cigarette smoker ongoing. He denies any history of diabetes. Family history is positive for CAD. Brother with an IA. Review of prior inpatient records here shows that this gentleman was hospitalized in April 2019 and was severely anemic requiring transfusion. He underwent EGD and colonoscopy and was found to have evidence of gastric and duodenal AVM although there was no active bleeding. He underwent ablation of the sites. He was discharged at that time on iron but is no longer taking this. Patient denies any recent vomiting. He notes that he is having some dark- colored stools. - Related Data Allergies/Adverse Reactions: No Known Allergies Allergy (Verified 05/03/19 17:03) Past Medical History - General Information source: Patient - Social History Smoking Status: Current Every Day Smoker Cigarette use (# per day): Yes - 10 Frequency of alcohol use: None Drug Abuse: None Lives with: Alone Family History: CAD, DM, Hypertension Patient has homicidal ideation: No - Past Medical History Cardiac Medical History: Reports: Hx Heart Attack, Hx Hypertension Neurological Medical History: Denies: Hx Seizures Renal/ Medical History: Denies: Hx Peritoneal Dialysis GI Medical History: Reports: Other - As per HPI. History of upper GI AVM. Psychiatric Medical History: Denies: Hx Depression Past Surgical History: Reports: Hx Orthopedic Surgery - right leg - Immunizations Hx Diphtheria, Pertussis, Tetanus Vaccination: Yes Review of Systems - Review of Systems Notes: Constitutional: Negative for fever. HENT: Negative for sore throat. Eyes: Negative for visual changes. Cardiovascular: As per HPI. Respiratory: Negative for shortness of breath. Gastrointestinal: As per HPI. Genitourinary: Negative for dysuria. Musculoskeletal: Negative for back pain. Skin: Negative for rash. Neurological: Negative for headaches, weakness or numbness. 10 point ROS negative except as marked above and in HPI. Physical Exam - Vital signs Vitals: Resp Pulse Ox 40 H 100 01/02/20 21:28 01/02/20 21:28 - Notes Notes: GENERAL: Slender elderly male appearing in no acute distress. SKIN: Good turgor no rashes. HEAD: Normocephalic atraumatic. EYES: PERRLA. EOMI. Conjunctivae and sclerae clear. EARS: CANALS AND TMS CLEAR. NOSE: CLEAR. MOUTH: Moist mucosa. Good dentition. No stridor or edema. No drooling. NECK: Supple. No masses or thyromegaly. No adenopathy. Carotids 2+ without bruits. No JVD. BACK: Symmetrical without tenderness. CHEST: Respirations unlabored. Breath sounds clear and symmetrical. HEART: Regular rhythm. No murmur gallop or rub. ABDOMEN: Soft nontender without masses, organomegaly or rebound. Bowel sounds normally active. No bruits. Rectal: No masses. Stool weakly heme positive on Hemoccult testing. EXTREMITIES: No edema. No calf tenderness. Cap refill less than 1.5 seconds. Dorsalis pedis and posterior tibial pulses 3+ and symmetrical. NEUROLOGICAL: GCS 15. Alert and oriented x3. Normal gait. Fluent speech. Cranial nerves II through XII intact. Sensorimotor and cerebellar normal. Normal tone. PSYCHIATRIC: Appropriate affect. Course - Re-evaluation Re-evalutation: 01/03/20 01:53 This man has severe anemia which is probably due to chronic blood loss as he does not look like he is having acute bleeding at this time. He is however profoundly anemic and he has a prior history of AVM of stomach and duodenum. His stool was weakly heme positive here. His abdomen is nontender. He has had no vomiting and he reports chronic melena. His chest pain is atypical and is troponin and EKG are both negative. We have initiated order for transfusion with 2 units of packed cells. We have given him 1 dose of IV Protonix and he will be admitted to telemetry by Dr. Zak Levin the on-call hospitalist. - Vital Signs Vital signs: Temp Pulse Resp BP Pulse Ox 97.8 F 98 18 136/54 H 100 01/02/20 22:03 01/02/20 21:47 01/03/20 01:01 01/02/20 22:01 01/03/20 01:01 - Laboratory Result Diagrams: 01/02/20 21:44 01/02/20 21:44 Laboratory results interpreted by me: 01/02/20 01/02/20 01/02/20 21:44 21:44 22:10 RBC 2.08 L Hgb 3.7 L* Hct 13.3 L* MCV 64 L MCH 17.7 L MCHC 27.6 L RDW 25.1 H Plt Count 38 L Sodium 135.2 L Glucose 132 H Creatine Kinase 41 L Crossmatch See Detail - EKG Interpretation by Me Additional EKG results interpreted by me: 01/02/20 22:21 Twelve-lead EKG from 2132 hrs. reviewed contemporaneously by me showing sinus tachycardia of 112 with a QRS axis of +62 degrees and normal intervals. No acute ST/T wave changes are present. Indication for current study: Chest pain. Critical Care Note - Critical Care Note Total time excluding time spent on procedures (mins): 35 - Tx. 2 units PRBC Discharge - Discharge Clinical Impression: Chest pain, Microcytic anemia Condition: Serious Disposition: ADMITTED INPATIENT Admitting Provider: Joon (Hospitalist) Unit Admitted: Telemetry
[2020-01-02 22:17] LABS: ALBUMIN 3.7 g/dL (3.5-5.0); ALKALINE PHOSPHATASE 87 U/L (38-126); ANION GAP 9 (5-19); ASPARTATE AMINO TRANSFERASE 26 U/L (17-59); BILIRUBIN,TOTAL 0.3 mg/dL (0.2-1.3); BLOOD UREA NITROGEN 19 mg/dL (7-20); CALCIUM 8.9 mg/dL (8.4-10.2); CARBON DIOXIDE 23 mmol/L (22-30); CHLORIDE 103 mmol/L (98-107); CREATINE KINASE 41 U/L (55-170); GLUCOSE 132 mg/dL (75-110); POTASSIUM 4.6 mmol/L (3.6-5.0); TOTAL PROTEIN 6.8 g/dL (6.3-8.2)
[2020-01-02 22:28] LABS: CREATINE KINASE MB 0.23 ng/mL (<4.55)
[2020-01-02 22:29] LABS: TROPONIN I < 0.012 ng/mL
[2020-01-02 22:31] LABS: ABSOLUTE LYMPHOCYTES# (MANUAL) 1.4 10^3/uL (0.5-4.7); ABSOLUTE MONOCYTES # (MANUAL) 0.3 10^3/uL (0.1-1.4); BASOPHILS % (MANUAL) 0 % (0-2); EOSINOPHILS % (MANUAL) 2 % (0-6); LYMPHOCYTES % (MANUAL) 21 % (13-45); MONOCYTES % (MANUAL) 5 % (3-13); NUCLEATED RED BLOOD CELLS 2 /100 WBC (0); SEGMENTED NEUTROPHILS % (MAN) 72 % (42-78); TOTAL CELLS COUNTED 100
[2020-01-02 22:39] LABS: ANISOCYTOSIS 3+; HYPOCHROMASIA 3+; PLATELET COMMENT DECREASED
[2020-01-02 22:44] LABS: OVALOCYTES SLIGHT; SCHISTOCYTES SLIGHT
[2020-01-02 22:50] LABS: ROULEAUX SLIGHT
[2020-01-02 22:51] LABS: POLYCHROMASIA 1+; TARGET CELLS SLIGHT
[2020-01-02 23:05] LABS: MEAN CORPUSCULAR VOLUME 64 fl (80-97)
[2020-01-02 23:06] LABS: HEMOGLOBIN 3.7 g/dL (13.5-17.0)
[2020-01-02] MEDS ORDERED: NORMAL SALINE 250 ML IV PRN ×2 (23:14)
--- NOTE | 2020-01-03 00:33 | RADIOLOGY REPORT (SQ) ---
CLINICAL HISTORY: CP COMPARISON: None. TECHNIQUE: XR CHEST 1 VIEW 01/02/2020 11:13 PM CDT FINDINGS: Cardiac silhouette is normal in size. Lungs are clear without consolidation, atelectasis, mass or edema. There is no pleural effusion. There is no pneumothorax. There are no acute osseous findings. IMPRESSION: Clear lungs.
[2020-01-03 01:25] LABS: PROTHROMBIN TIME 14.2 SEC (11.4-15.4)
[2020-01-03 01:26] LABS: PARTIAL THROMBOPLASTIN TIME 28.7 SEC (23.5-35.8)
[2020-01-03] MEDS ORDERED: ACETAMINOPHEN 325 MG TABLET PO PRN (02:14)
[2020-01-03] MEDS ORDERED: FUROSEMIDE INJ/PF 20 MG/2 ML SDV IV PRN (02:14)
[2020-01-03] MEDS ORDERED: DIPHENHYDRAMINE HCL 25 MG CAPSULE PO PRN (02:14)
--- NOTE | 2020-01-03 05:47 | PDOC H&P ---
History of Present Illness Admission Date/PCP: 01/03/20 02:05 No local PCP Patient complains of: Epigastric pain History of Present Illness: LOLY KAMINKSI is a 74 year old male who presented to the emergency room with acute epigastric pain. He admits to sudden onset of severe sharp stabbing pain in the center of his upper abdomen, radiating up into his central chest, lasting for several minutes and then resolving spontaneously. The pain recurred a few minutes later again resolving spontaneously. He admits associated chronic melena due to arteriovenous malformations of his gastrointestinal tract with chronic bleeding. He denies any additional associated or accompanying signs and symptoms with his pain. He denies prior similar episodes. He denies identification of any aggravating or ameliorating factors for his epigastric pain. In the emergency room he was found to have hemoglobin was 3.7 and as such transfusion therapy was ordered and the patient was admitted to observation status for further evaluation and treatment. Past Medical History Cardiac Medical History: Reports: Coronary Artery Disease, Myocardial Infarction, Hypertension Pulmonary Medical History: Reports: Chronic Obstructive Pulmonary Disease (COPD) Denies: Asthma EENT Medical History: Denies: Cataracts, Ears - Hearing aids Neurological Medical History: Denies: Hemorrhagic CVA, Ischemic CVA, Seizures Endocrine Medical History: Denies: Diabetes Mellitus Type 1, Diabetes Mellitus Type 2, Hyperthyroidism, Hypothyroidism, Obesity Renal/ Medical History: Denies: Chronic Kidney Disease, Nephrolithiasis Malignancy Medical History: Reports: None GI Medical History: Reports: Other - Upper GI AVM, EGD and colonoscopy performed April 2019. Denies: Cirrhosis, Crohn's Disease, Gastroesophageal Reflux Disease, Hepatitis, Peptic Ulcer Disease, Ulcerative Colitis Musculoskeltal Medical History: Denies: Arthritis, Gout Skin Medical History: Denies: Eczema, Psoriasis Psychiatric Medical History: Reports: Tobacco Dependency Denies: Alcohol Dependency, Depression, Substance Abuse Traumatic Medical History: Reports: None Hematology: Reports: Anemia, Bleeding Tendencies Infectious Medical History: Reports: None Past Surgical History Past Surgical History: Reports: Orthopedic Surgery - right leg Social History Information Source: Patient Lives with: Alone Smoking Status: Current Every Day Smoker Electronic Cigarette use?: No Frequency of Alcohol Use: None Hx Recreational Drug Use: No Drugs: None Hx Prescription Drug Abuse: No - Advance Directive Resuscitation Status: Full Code Surrogate healthcare decision maker:: Joseph Arrieta Family History Family History: CAD, DM, Hypertension Parental Family History Reviewed: Yes Children Family History Reviewed: No Sibling(s) Family History Reviewed.: Yes Medication/Allergy Home Medications: Metoprolol Tartrate [Lopressor 50 mg Tablet] 50 mg PO Q12 #60 tablet 03/04/18 Lisinopril [Prinivil 5 mg Tablet] 5 mg PO DAILY 05/03/19 Allergies/Adverse Reactions: No Known Allergies Allergy (Verified 05/03/19 17:03) Review of Systems Constitutional: ABSENT: chills, fever(s) Eyes: ABSENT: visual disturbances, other - Eye pain Ears: ABSENT: hearing changes, other - Ear pain Nose, Mouth, and Throat: ABSENT: headache(s), sore throat Cardiovascular: ABSENT: chest pain, palpitations Respiratory: ABSENT: cough, dyspnea Gastrointestinal: PRESENT: as per HPI, abdominal pain, melena. ABSENT: constipation, diarrhea, nausea, vomiting Genitourinary: ABSENT: dysuria, hematuria Musculoskeletal: ABSENT: back pain, joint swelling Integumentary: ABSENT: pruritus, rash Neurological: ABSENT: confusion, convulsions, focal weakness, memory loss, syncope Psychiatric: ABSENT: anxiety, depression Endocrine: ABSENT: cold intolerance, heat intolerance Hematologic/Lymphatic: ABSENT: easy bleeding, easy bruising Allergic/Immunologic: ABSENT: seasonal rhinorrhea Physical Exam Vital Signs: Temp Pulse Resp BP Pulse Ox 97.6 F 93 15 129/60 H 100 01/03/20 02:11 01/03/20 02:11 01/03/20 02:11 01/03/20 02:11 01/03/20 02:11 Intake & Output 01/01/20 01/02/20 01/03/20 23:59 23:59 23:59 Intake Total 0 Balance 0 Weight 54.431 kg General appearance: PRESENT: no acute distress, cooperative, thin Head exam: PRESENT: atraumatic, normocephalic Eye exam: PRESENT: conjunctiva pale. ABSENT: conjunctival injection, scleral icterus Ear exam: PRESENT: normal external ear exam. ABSENT: bleeding, drainage Mouth exam: PRESENT: dry mucosa, neck supple Neck exam: ABSENT: thyromegaly, tracheal deviation Respiratory exam: PRESENT: prolonged expiratory phas - Minimally prolonged expiratory phase noted in all haider, symmetrical, unlabored Cardiovascular exam: PRESENT: RRR. ABSENT: clicks, gallop, rubs Pulses: PRESENT: normal radial pulses, normal dorsalis pedis pul Vascular exam: PRESENT: pallor - Moderate pallor is noted. ABSENT: normal capillary refill - Capillary refill delayed 2 to 3 seconds GI/Abdominal exam: PRESENT: normal bowel sounds, soft. ABSENT: tenderness Rectal exam: PRESENT: deferred Extremities exam: ABSENT: joint swelling, pedal edema Musculoskeletal exam: ABSENT: deformity, dislocation Neurological exam: PRESENT: alert, oriented to person, oriented to place, oriented to time, oriented to situation, CN II-XII grossly intact. ABSENT: motor sensory deficit Psychiatric exam: PRESENT: appropriate affect, normal mood Skin exam: PRESENT: dry, intact, pallor - Moderate pallor noted, warm. ABSENT: jaundice, rash, urticaria Results Laboratory Results: 01/02/20 21:44 01/02/20 21:44 01/02/20 01/02/20 01/02/20 21:44 21:44 22:10 WBC 6.9 RBC 2.08 L Hgb 3.7 L* Hct 13.3 L* MCV 64 L MCH 17.7 L MCHC 27.6 L RDW 25.1 H Plt Count 38 L Seg Neutrophils % Not Reportable Sodium 135.2 L Potassium 4.6 Chloride 103 Carbon Dioxide 23 Anion Gap 9 BUN 19 Creatinine 0.76 Est GFR ( Amer) > 60 Glucose 132 H Calcium 8.9 Total Bilirubin 0.3 AST 26 Alkaline Phosphatase 87 Total Protein 6.8 Albumin 3.7 Blood Type O POSITIVE Antibody Screen NEGATIVE 01/02/20 01/02/20 21:44 21:44 Creatine Kinase 41 L CK-MB (CK-2) 0.23 Troponin I < 0.012 Impressions: Chest X-Ray 01/02/20 23:13 IMPRESSION: Clear lungs. Assessment and Plan - Diagnosis (1) Anemia due to chronic blood loss Is this a current diagnosis for this admission?: Yes (2) AVM (arteriovenous malformation) of small bowel, acquired with hemorrhage Is this a current diagnosis for this admission?: Yes (3) COPD (chronic obstructive pulmonary disease) Qualifiers: COPD type: unspecified COPD Qualified Code(s): J44.9 - Chronic obstructive pulmonary disease, unspecified Is this a current diagnosis for this admission?: Yes (4) Hypertension Qualifiers: Hypertension type: essential hypertension Qualified Code(s): I10 - Essential (primary) hypertension Is this a current diagnosis for this admission?: Yes (5) Coronary artery disease Qualifiers: Coronary Disease-Associated Artery/Lesion type: [place] artery [place] vs. transplanted heart: [place] heart Associated angina: without angina Qualified Code(s): I25.10 - Atherosclerotic heart disease of [place] coronary artery without angina pectoris Is this a current diagnosis for this admission?: Yes (6) Tobacco abuse Is this a current diagnosis for this admission?: Yes - Plan Summary Summary: Patient is admitted to medical floor where he will receive routine supportive and symptomatic cares. He will receive 4 units of packed red blood cells in transfusion. He will use Ativan 1 mg IV every 4 hours as needed for anxiety or restlessness. He will use morphine sulfate 2 to 4 mg IV every 2 hours as needed for pain. CBCs, metabolic profiles, magnesium levels, cardiac enzymes and/or other laboratory or radiographic evaluations will be obtained as appropriate. Patient will be on a cardiac diet. Smoking cessation is advised and counseled briefly at the bedside. A nicotine replacement patch is available for the patient's use, if desired. - Time Time Spent with patient: 15-24 minutes Smoking Cessation Education: 3 to 10 minutes Medications reviewed and adjusted accordingly: Yes Anticipated discharge: Home Within: within 48 hours - Inpatient Certification Based on my medical assessment, after consideration of the patient's comorbidities, presenting symptoms, or acuity I expect that the services needed warrant INPATIENT care.: No I certify that my determination is in accordance with my understanding of Medicare's requirements for reasonable and necessary INPATIENT services [42 CFR 412.3e].: No
--- NOTE | 2020-01-03 07:21 | EKG REPORT ---
SEVERITY:- ABNORMAL ECG - SINUS TACHYCARDIA NONSPECIFIC T ABNORMALITIES, DIFFUSE : Confirmed by: Aime Castorena MD 03-Jan-2020 07:20:20
--- NOTE | 2020-01-03 12:35 | Progress Note ---
Provider Note Provider Note: He has had several units of packed red blood cells ordered. He had EGD back in April 2019 which showed gastric and duodenal AVMs. We will monitor for signs of any ongoing blood loss. If he continues to manifest such, will contact Dr. Bobby who did his previous EGD. Patient denies any abdominal pain, nausea or vomiting at this time.
[2020-01-03 13:06] LABS: PATH REVIEW PATHOLOGIST REVIEWED
[2020-01-04 09:29] LABS: MEAN CORPUSCULAR HGB CONC 33.2 g/dL (32.0-36.0); RED BLOOD COUNT 4.91 10^6/uL (4.35-5.55); RED CELL DISTRIBUTION WIDTH 24.9 % (11.5-14.0); WHITE BLOOD COUNT 13.5 10^3/uL (4.0-10.5)
[2020-01-04 10:01] LABS: HEMOGLOBIN 12.3 g/dL (13.5-17.0)
[2020-01-04 10:02] LABS: MEAN CORPUSCULAR VOLUME 75 fl (80-97)
[2020-01-04 10:11] LABS: PLATELET COUNT 414 10^3/uL (150-450)
--- NOTE | 2020-01-04 16:47 | PDOC PROGRESS REPORT ---
Subjective Progress Note for:: 01/04/20 Subjective:: No adverse events overnight. No new complaints. No hematemesis, melena, or hematochezia. No abdominal pain, nausea or vomiting. Eating and drinking without difficulty. Reason For Visit: CHRONIC BLOOD LOSS,ANEMIA DUE TO GASTROINTENSTINAL Physical Exam Vital Signs: Temp Pulse Resp BP Pulse Ox 98.1 F 80 16 132/60 H 99 01/04/20 15:00 01/04/20 15:00 01/04/20 15:00 01/04/20 15:00 01/04/20 15:00 Intake & Output 01/03/20 01/04/20 01/05/20 06:59 06:59 06:59 Intake Total 300 2250 480 Balance 300 2250 480 Weight 54.431 kg General appearance: PRESENT: no acute distress, cooperative, disheveled, thin Respiratory exam: PRESENT: clear to auscultation yolie, symmetrical, unlabored. ABSENT: accessory muscle use, chest wall tenderness, crackles, prolonged expiratory phas, rhonchi, tachypnea, wheezes Cardiovascular exam: PRESENT: RRR, +S1, +S2 Pulses: PRESENT: normal carotid pulses Vascular exam: PRESENT: normal capillary refill GI/Abdominal exam: PRESENT: normal bowel sounds, soft. ABSENT: distended, guarding, rebound, tenderness Extremities exam: ABSENT: clubbing, pedal edema Musculoskeletal exam: PRESENT: normal inspection. ABSENT: deformity Neurological exam: PRESENT: alert, awake, oriented to person, oriented to place, oriented to situation Psychiatric exam: PRESENT: appropriate affect, normal mood Skin exam: PRESENT: dry, warm Results Laboratory Results: 01/04/20 08:47 01/02/20 21:44 01/02/20 01/04/20 21:44 08:47 WBC 13.5 H RBC 4.91 Hgb 12.3 L D Hct 37.0 L MCV 75 L D MCH 25.0 L MCHC 33.2 RDW 24.9 H Plt Count 414 01/02/20 01/02/20 01/03/20 21:44 21:44 02:06 Creatine Kinase 41 L CK-MB (CK-2) 0.23 Troponin I < 0.012 < 0.012 Impressions: Chest X-Ray 01/02/20 23:13 IMPRESSION: Clear lungs. Assessment and Plan - Diagnosis (1) Anemia due to chronic blood loss Is this a current diagnosis for this admission?: Yes Plan: He is also iron deficient. I recommended that he take an iron supplement twice a day for couple of months to build his iron stores back up. When he came in and his hemoglobin was read as 3.7 we gave him 4 units of blood and today it was over 12. Either the first hemoglobin was not really that low, the second hemoglobin was not really that high, or it somewhere in between. We will repeat another hemoglobin in the morning to reassess. I expect that it is probably going to be a little bit lower than 12. (2) AVM (arteriovenous malformation) of small bowel, acquired with hemorrhage Is this a current diagnosis for this admission?: Yes Plan: This was found on a recent endoscopy. This is likely the source of his blood loss and subsequent iron deficiency. He should probably be on a proton pump inhibitor whenever he goes home. The AVMs were ablated but he would probably benefit from a couple of months on a proton pump inhibitor. He was also supposed to be on lisinopril and metoprolol at home. He has been on Plavix coming into the last hospitalization but that was discontinued in favor of a baby aspirin. He has a history of coronary artery disease but was thought to be a poor candidate for a left heart cath and so the decision was made by Dr. Frank to manage him medically. - Plan Summary Summary: Patient is admitted to medical floor where he will receive routine supportive and symptomatic cares. He will receive 4 units of packed red blood cells in transfusion. He will use Ativan 1 mg IV every 4 hours as needed for anxiety or restlessness. He will use morphine sulfate 2 to 4 mg IV every 2 hours as needed for pain. CBCs, metabolic profiles, magnesium levels, cardiac enzymes and/or other laboratory or radiographic evaluations will be obtained as appropriate. Patient will be on a cardiac diet. Smoking cessation is advised and counseled briefly at the bedside. A nicotine replacement patch is available for the patient's use, if desired. - Time Time Spent with patient: 25-34 minutes
[2020-01-05 06:33] LABS: HEMATOCRIT 40.3 % (37.9-51.0); HEMOGLOBIN 13.1 g/dL (13.5-17.0); MEAN CORPUSCULAR HEMOGLOBIN 24.6 pg (27.0-33.4); MEAN CORPUSCULAR HGB CONC 32.4 g/dL (32.0-36.0); MEAN CORPUSCULAR VOLUME 76 fl (80-97); PLATELET COUNT 410 10^3/uL (150-450); RED BLOOD COUNT 5.31 10^6/uL (4.35-5.55); RED CELL DISTRIBUTION WIDTH 24.7 % (11.5-14.0); WHITE BLOOD COUNT 13.5 10^3/uL (4.0-10.5)
[2020-01-05 10:53] VITALS: BP 142/7
--- NOTE | 2020-01-07 12:07 | PDOC DISCHARGE SUMMARY ---
Impression - Admit/DC Date/PCP Admission Date/Primary Care Provider: 01/03/20 02:05 URMILA HAMMOND MD Discharge Date: 01/05/20 - Discharge Diagnosis (1) Anemia due to chronic blood loss Is this a current diagnosis for this admission?: Yes (2) AVM (arteriovenous malformation) of small bowel, acquired with hemorrhage Is this a current diagnosis for this admission?: Yes (3) COPD (chronic obstructive pulmonary disease) Is this a current diagnosis for this admission?: Yes (4) Coronary artery disease Is this a current diagnosis for this admission?: Yes (5) Hypertension Is this a current diagnosis for this admission?: Yes (6) Tobacco abuse Is this a current diagnosis for this admission?: Yes - Additional Information Resuscitation Status: Full Code Discharge Diet: Cardiac Discharge Activity: Activity As Tolerated, Balance Activity w/Rest Referrals: [facility] [Provider Group] - 01/17/20 9:00 am ALAINA BOBBY MD [ACTIVE STAFF] - 01/11/20 3:00 pm (follow up at earliest available appointment.) Prescriptions: Ferrous Sulfate [Feosol 325 mg Tablet] 325 mg PO MEALS #90 tab Metoprolol Succinate [[place] Sprinkle] 25 mg PO DAILY #30 cap.spr.24 Lisinopril [Prinivil 5 mg Tablet] 5 mg PO DAILY #30 tablet Pantoprazole Sodium [Protonix [address] Tablet] 40 mg PO QAMPM #60 tablet.dr Home Medications: Ferrous Sulfate [Feosol 325 mg Tablet] 325 mg PO MEALS #90 tab 01/05/20 Lisinopril [Prinivil 5 mg Tablet] 5 mg PO DAILY #30 tablet 01/05/20 Metoprolol Succinate [[place] Sprinkle] 25 mg PO DAILY #30 cap.spr.24 01/05/20 Pantoprazole Sodium [Protonix [address] Tablet] 40 mg PO QAMPM #60 tablet.dr 01/05/20 History of Present Illiness History of Present Illness: Per H&P by Dr. Dupree: LOLY KAMINSKI is a 74 year old male who presented to the emergency room with acute epigastric pain. He admits to sudden onset of severe sharp stabbing pain in the center of his upper abdomen, radiating up into his central chest, lasting for several minutes and then resolving spontaneously. The pain recurred a few minutes later again resolving spontaneously. He admits associated chronic melena due to arteriovenous malformations of his gastrointestinal tract with chronic bleeding. He denies any additional associated or accompanying signs and symptoms with his pain. He denies prior similar episodes. He denies identification of any aggravating or ameliorating factors for his epigastric pain. In the emergency room he was found to have hemoglobin was 3.7 and as such transfusion therapy was ordered and the patient was admitted to observation status for further evaluation and treatment. Hospital Course Hospital Course: Patient 1 admitted to the medical floor on continuous cardiac telemetry. He was provided 4 units PRBC with increase of hemoglobin from 3.7->12.3. This likely indicates that his initial hemoglobin was not quite that low as the improvement was greater than expected. IV fluids were discontinued and follow- up CBC the next morning showed spontaneous increased to 13.1. The patient's associated symptoms of chest and epigastric discomfort, and dyspnea on exertion, have resolved. The patient was recently found to have multiple AVMs of the small bowel on prior endoscopy. This is likely the source of his iron deficiency through chronic blood loss. He is discharged home on PPI. He is advised of the importance of following up with Dr. Bobby as scheduled for further evaluation and management as an outpatient. The patient admits that he has run out of his normal home medication regiment; therefore, he is provided refill prescriptions for his metoprolol, lisinopril, Protonix, and ferrous sulfate. He is discharged home in stable condition. He is instructed to follow-up with his PCP within [address] Bobby as scheduled. He is encouraged to take his medications as prescribed. Do not drink alcohol or smoke. Return to the emergency department as needed for concerning symptoms. Physical Exam Vital Signs: Temp Pulse Resp BP Pulse Ox 97.8 F 83 19 142/7 H 99 01/05/20 10:50 01/05/20 10:50 01/05/20 10:50 01/05/20 10:50 01/05/20 10:50 General appearance: PRESENT: no acute distress, disheveled, thin, well-developed Head exam: PRESENT: atraumatic, normocephalic Eye exam: PRESENT: conjunctiva pink, EOMI, PERRLA. ABSENT: scleral icterus Mouth exam: PRESENT: moist, tongue midline Teeth exam: PRESENT: dental caries, poor dentation Respiratory exam: PRESENT: clear to auscultation yolie, symmetrical, unlabored. ABSENT: rales, rhonchi, wheezes Cardiovascular exam: PRESENT: RRR. ABSENT: diastolic murmur, rubs, systolic murmur Pulses: PRESENT: normal dorsalis pedis pul Vascular exam: PRESENT: normal capillary refill Rectal exam: PRESENT: deferred, heme (+) stool Extremities exam: PRESENT: full ROM. ABSENT: calf tenderness, clubbing, pedal e stef Neurological exam: PRESENT: alert, awake, oriented to person, oriented to place, oriented to time, oriented to situation, CN II-XII grossly intact. ABSENT: motor sensory deficit Psychiatric exam: PRESENT: appropriate affect, normal mood. ABSENT: homicidal ideation, suicidal ideation Skin exam: PRESENT: dry, intact, warm. ABSENT: cyanosis, rash Results Laboratory Results: WBC 13.5 10^3/uL (4.0-10.5) H 01/05/20 06:13 RBC 5.31 10^6/uL (4.35-5.55) 01/05/20 06:13 Hgb 13.1 g/dL (13.5-17.0) L 01/05/20 06:13 Hct 40.3 % (37.9-51.0) 01/05/20 06:13 MCV 76 fl (80-97) L 01/05/20 06:13 MCH 24.6 pg (27.0-33.4) L 01/05/20 06:13 MCHC 32.4 g/dL (32.0-36.0) 01/05/20 06:13 RDW 24.7 % (11.5-14.0) H 01/05/20 06:13 Plt Count 410 10^3/uL (150-450) 01/05/20 06:13 Lymph % (Auto) Not Reportable 01/02/20 21:44 [place] % (Auto) Not Reportable 01/02/20 21:44 Eos % (Auto) Not Reportable 01/02/20 21:44 Baso % (Auto) Not Reportable 01/02/20 21:44 Absolute Neuts (auto) Not Reportable 01/02/20 21:44 Absolute Lymphs (auto) Not Reportable 01/02/20 21:44 Absolute Monos (auto) Not Reportable 01/02/20 21:44 Absolute Eos (auto) Not Reportable 01/02/20 21:44 Absolute Basos (auto) Not Reportable 01/02/20 21:44 Total Counted 100 01/02/20 21:44 Seg Neutrophils % Not Reportable 01/02/20 21:44 Seg Neuts % (Manual) 72 % (42-78) 01/02/20 21:44 Lymphocytes % (Manual) 21 % (13-45) 01/02/20 21:44 Monocytes % (Manual) 5 % (3-13) 01/02/20 21:44 Eosinophils % (Manual) 2 % (0-6) 01/02/20 21:44 Basophils % (Manual) 0 % (0-2) 01/02/20 21:44 Abs Neuts (Manual) 5.0 10^3/uL (1.7-8.2) 01/02/20 21:44 Abs Lymphs (Manual) 1.4 10^3/uL (0.5-4.7) 01/02/20 21:44 Abs Monocytes (Manual) 0.3 10^3/uL (0.1-1.4) 01/02/20 21:44 Absolute Eos (Manual) 0.1 10^3/uL (0.0-0.6) 01/02/20 21:44 Abs Basophils (Manual) 0.0 10^3/uL (0.0-0.2) 01/02/20 21:44 Nucleated RBCs 2 /100 WBC (0) 01/02/20 21:44 Platelet Comment DECREASED 01/02/20 21:44 Polychromasia 1+ 01/02/20 21:44 Hypochromasia 3+ 01/02/20 21:44 Anisocytosis 3+ 01/02/20 21:44 Microcytosis 3+ 01/02/20 21:44 Target Cells SLIGHT 01/02/20 21:44 Ovalocytes SLIGHT 01/02/20 21:44 Rouleaux SLIGHT 01/02/20 21:44 Schistocytes SLIGHT 01/02/20 21:44 PT 14.2 SEC (11.4-15.4) 01/03/20 01:00 INR 1.10 01/03/20 01:00 APTT 28.7 SEC (23.5-35.8) 01/03/20 01:00 Sodium 135.2 mmol/L (137-145) L 01/02/20 21:44 Potassium 4.6 mmol/L (3.6-5.0) 01/02/20 21:44 Chloride 103 mmol/L (98-107) 01/02/20 21:44 Carbon Dioxide 23 mmol/L (22-30) 01/02/20 21:44 Anion Gap 9 (5-19) 01/02/20 21:44 BUN 19 mg/dL (7-20) 01/02/20 21:44 Creatinine 0.76 mg/dL (0.52-1.25) 01/02/20 21:44 Est GFR ( Amer) > 60 (>60) 01/02/20 21:44 Est GFR (MDRD) Non-Af > 60 (>60) 01/02/20 21:44 Glucose 132 mg/dL (75-110) H 01/02/20 21:44 Calcium 8.9 mg/dL (8.4-10.2) 01/02/20 21:44 Total Bilirubin 0.3 mg/dL (0.2-1.3) 01/02/20 21:44 Direct Bilirubin 0.0 mg/dL (0.0-0.4) 01/02/20 21:44 Neonat Total Bilirubin Not Reportable 01/02/20 21:44 Neonat Direct Bilirubin Not Reportable 01/02/20 21:44 Neonat Indirect Bili Not Reportable 01/02/20 21:44 AST 26 U/L (17-59) 01/02/20 21:44 ALT 10 U/L (<50) 01/02/20 21:44 Alkaline Phosphatase 87 U/L (38-126) 01/02/20 21:44 Creatine Kinase 41 U/L (55-170) L 01/02/20 21:44 CK-MB (CK-2) 0.23 ng/mL (<4.55) 01/02/20 21:44 Troponin I < 0.012 ng/mL 01/03/20 02:06 Total Protein 6.8 g/dL (6.3-8.2) 01/02/20 21:44 Albumin 3.7 g/dL (3.5-5.0) 01/02/20 21:44 POC Stool Occult Blood POSITIVE (NEGATIVE) 01/02/20 22:57 Slides for Path Review PATHOLOGIST REVIEWED 01/02/20 21:44 Blood Type O POSITIVE 01/02/20 22:10 Antibody Screen NEGATIVE 01/02/20 22:10 Crossmatch See Detail 01/02/20 22:10 01/02/20 01/03/20 21:44 02:06 CK-MB (CK-2) 0.23 Troponin I < 0.012 < 0.012 Impressions: Chest X-Ray 01/02/20 23:13 IMPRESSION: Clear lungs. Plan Plan of Treatment: Patient is discharged home in stable condition. He is advised to follow-up with his primary care provider within 1 week. He is also provided a follow-up appointment with Dr. Bobby. Patient admits that he did not follow-up with GI following his last discharge. He is strongly encouraged not to miss this appointment. He is advised to take his medications as prescribed. Return to the emergency department as needed for concerning symptoms. Time Spent: Greater than 30 Minutes Stroke Is this a Stroke Patient?: No Acute Heart Failure - Is this a Heart Failure Patient?: No
== END 2020-01-05 11:58 | disposition home or self-care (01) ==
LOC: ER 21:25 → INTOOBSV 01-03 02:05 → EH 01-03 02:05 → 4S 01-03 03:00
PROVIDERS: ADMIT Emergency Medicine; ATTEND Registered Nurse
DX: D50.0 Iron deficiency anemia secondary to blood loss (chronic) (principal); Q27.33 Arteriovenous malformation of digestive system vessel; J44.9 Chronic obstructive pulmonary disease, unspecified; F17.210 Nicotine dependence, cigarettes, uncomplicated; I25.2 Old myocardial infarction; I25.10 Atherosclerotic heart disease of native coronary artery without angina pectoris; I10 Essential (primary) hypertension; Z79.82 Long term (current) use of aspirin; Z82.49 Family history of ischemic heart disease and other diseases of the circulatory system; Z60.2 Problems related to living alone; Z79.899 Other long term (current) drug therapy; Z20.828 Contact with and (suspected) exposure to other viral communicable diseases
CPT/HCPCS: 99406; 93005; 99291; 96374; 86900; 86901; 36415 ×4; 82553; 36430; 86850; 82550; 85025; 85027 ×2; 85610; 85730; 82270; 80053; 84484 ×2; 86920 ×2; 71045; 93010; G0378 ×3; P9016; U0003; J1940; C9113; C9803; 87635

== ENCOUNTER → 2020-01-18 | Outpatient (CLI) | payer MEDICARE ==
--- NOTE | 2020-01-18 10:34 | ER RDC ASSESSMENT REPORT ---
Intake - In the Last 14 days Have you traveled outside [place]?: No Have you been in close contact with someone CONFIRMED: No Worked in Healthcare?: No - Symptoms Subjective Fever([place] feverish): No Chills: No Muscule Aches: No Runny Nose: No Sore Throat: No Cough (New or worsening chronic cough): No Shortness of breath: No Nausea or Vomiting: No Headache: No Abdominal Pain: No Diarrhea(3 or more loose stools in last 24 hours): No - Do you have any of the following Chronic lung disease: Asthma or emphysema or COPD: No Cystic Fibrosis: No Diabetes: No High Blood Pressure: No Cardiovascular Disease: Yes Cardiovascular Disease Comment: Hypotension Chronic Kidney Disease: No Chronic Liver Disease: No Chronic blood disorder like Sickle Cell Disease: No Weak immune system due to disease or medication: No Neurologic condition that limits movement: No Developmental delay - Moderate to Severe: No Recent (within past 2 weeks) or current : No Morbid Obesity (>100 pounds over ideal weight): No Obesity Comment: 5 feet 6 inches weight 115 pounds - Objective Temperature: 96.5 F Pulse Rate: 86 Respiratory Rate: 18 Blood Pressure: 125/59 O2 Sat by Pulse Oximetry: 96 Objective: Given above, testing performed: If Testing Performed: Test Specimen Type Sent to General - General Information source: Patient Notes: Here at [facility] for COVID testing. Patient reports has a colonoscopy scheduled next week with Dr. Kelsey unsure of where to go for preop. Told needed to have COVID testing done before he could have the colonoscopy. Patient denies any symptoms - Related Data Allergies/Adverse Reactions: No Known Allergies Allergy (Verified 05/03/19 17:03) Past Medical History - General Information source: Patient - Social History Smoking Status: Current Every Day Smoker - Smokes 4 to 5 cigarettes/day Smoking Education Provided: Yes - Quit smoking Family History: CAD, DM, Hypertension - Past Medical History Cardiac Medical History: Reports: Hx Coronary Artery Disease, Hx Heart Attack, Hx Hypertension Pulmonary Medical History: Reports: Hx COPD Denies: Hx Asthma Neurological Medical History: Denies: Hx Seizures Endocrine Medical History: Denies: Hx Diabetes Mellitus Type 1, Hx Diabetes Mellitus Type 2, Hx Hyperthyroidism, Hx Hypothyroidism Renal/ Medical History: Denies: Hx Peritoneal Dialysis GI Medical History: Denies: Hx Cirrhosis, Hx Crohn's Disease, Hx Gastroesophageal Reflux Disease, Hx Hepatitis, Hx Ulcerative Colitis Musculoskeletal Medical History: Denies Hx Arthritis, Denies Hx Gout Skin Medical History: Denies Hx Eczema, Denies Hx Psoriasis Psychiatric Medical History: Denies: Hx Depression Infectious Medical History: Denies: Hx Hepatitis Past Surgical History: Reports: Hx Orthopedic Surgery - right leg Physical Exam - General General appearance: Appears well, Alert In distress: None Notes: PHYSICAL EXAMINATION: GENERAL: Well-appearing and in no acute distress. HEAD: Atraumatic, normocephalic. EYES: sclera anicteric, conjunctiva are normal. ENT: nares patent. Moist mucous membranes. NECK: Normal range of motion, supple without lymphadenopathy LUNGS: CTAB and equal. No wheezes rales or rhonchi. Resp even and unlabored. Lung sounds clear. HEART: Regular rate and rhythm without murmurs ABDOMEN: Soft, nontender, normal bowel sounds, no guarding. EXTREMITIES: No cyanosis. NEUROLOGICAL: Normal speech. PSYCH: Normal mood, normal affect. SKIN: Warm, Dry, normal turgor, Diagnostic Results Laboratory Results: Pending COVID testing results for preop colonoscopy next week. Patient provided instructions regarding COVID to include: As a person under investigation for Covid 19, the [place] department of Health and Human Services, division of public health advises you to adhere to the following guidance until your test results are reported to you. If your test result is positive, you will receive additional information from your provider and your local health department at that time. Remain at home until you are cleared by the health provider or public health authorities. Keep a log of visitors to your home, notify any visitors to your home of your isolation status. If you plan to move to a new address or leave the [facility], notify the local [facility] department in your County. Call your doctor or seek care if you have an urgent medical need. Before seeking medical care, call ahead to get instructions from the provider before arriving at the medical office clinic or hospital. Notify them that you are being tested for the virus that causes Covid 19 so that arrangements can be made, as necessary, to prevent transmission to others in the healthcare setting. Next, notify the local health department in your county. If a medical emergency arises and you need to call 911, inform the first responders that you are being tested for the virus that causes Covid 19. Next, notify the local health department in your county. Patient Education/Counseling Counseling/Education: Patient presents with upper respiratory symptoms worrisome for possible Covid 19. Patient does not have emergency worring symptoms such as difficulty breathing, shortness of breath, chest pain, pressure, confusion or cyanosis. Patient appears suitable for discharge. Patient instructed to follow-up with PCP and Dr. Kelsey in advance of colonoscopy and preop work-up next week. Patient's vital signs are stable and patient is nontoxic in appearance. Good return precautions have been discussed with patient, patient verbalized understanding and is agreeable with discharge plan of care at this time. C Discharge - Discharge Clinical Impression: Encounter for screening laboratory testing for COVID-19 virus in asymptomatic patient Condition: Stable Disposition: Home; Selfcare
[2020-01-18 10:35] VITALS: BP 125/59
== END ==
LOC: RDC 09:37
PROVIDERS: ATTEND Nurse Practitioner Family
DX: Z20.828 Contact with and (suspected) exposure to other viral communicable diseases (principal); I95.9 Hypotension, unspecified; F17.210 Nicotine dependence, cigarettes, uncomplicated; I25.10 Atherosclerotic heart disease of native coronary artery without angina pectoris; I10 Essential (primary) hypertension; I25.2 Old myocardial infarction

== ENCOUNTER 2020-01-23 06:35 | Day surgery (SDC) | payer MEDICARE ==
[2020-01-23] MEDS ORDERED: PROPOFOL INJ 200 MG/20 ML VIAL IV ONE (07:37)
--- NOTE | 2020-01-23 09:40 | Operative Report ---
Operative Report DATE OF SURGERY: 01/23/20 Operative Report: The risk, benefits and alternatives of the procedure including the risks of bleeding, perforation requiring surgery have been explained to the patient in detail and informed consent has been obtained. Patient is placed in a left, lateral decubital position. Timeout was called. Propofol medication is administered. A rectal examination is done which did not reveal any masses, tears or fissures. An Olympus videoscope was introduced into the patient's re ctum. Scope was then carefully advanced all the way to the cecum. Cecum was identified by the usual anatomical landmarks including the ileocecal valve as well as the appendiceal office. Photodocumentation is obtained. Scope was then sequentially pulled back via the various segments of the colon including the ascending colon, hepatic flexure, transverse colon, splenic flexure, descending colon and finally into the rectosigmoid portions of the colon. Retroflexion maneuver is performed. The risks benefits and alternatives of the procedure explained to the patient in detail and informed consent is obtained.A GIF Olympus video scope was inserted into the patient's mouth and hypopharynx, the esophagus is identified intubated and insufflated ,the scope was then advanced through the esophagus stomach and duodenum, retroflexion maneuver is done the esophagus stomach and first and second portions of the duodenum examined PREOPERATIVE DIAGNOSIS: Iron deficiency anemia rule out GI bleeding POSTOPERATIVE DIAGNOSIS: Duodenal AVM status post ablation. Multiple gastric AVMs status post ablation. Right colon inflammation status post biopsy. Internal hemorrhoids OPERATION: Colonoscopy with biopsy. EGD with biopsy SURGEON: ALAINA STERLING ANESTHESIA: LMAC TISSUE REMOVED OR ALTERED: As noted above. COMPLICATIONS: None. ESTIMATED BLOOD LOSS: None. INTRAOPERATIVE FINDINGS: As noted above. PROCEDURE: Patient tolerated the procedure well. No immediate postprocedure complications are noted. Patient is discharged in good condition. Discharge date 01/23/2020. Discharge diet: Regular. Discharge activity: Regular. 2 to 3-week follow-up to discuss findings. Patient is instructed to call the office or proceed to the emergency room should there be any further problems or questions. Wait on the pathology. Continue to monitor blood count May need repeat EGD for ablation Surveillance colonoscopy 5 to 10 years
[2020-01-23 10:14] VITALS: BP 150/60
== END 2020-01-23 11:20 | disposition home or self-care (01) ==
LOC: END 06:35
PROVIDERS: ATTEND Internal Medicine Gastroenterology
DX: Q27.33 Arteriovenous malformation of digestive system vessel (principal); D50.9 Iron deficiency anemia, unspecified; K52.9 Noninfective gastroenteritis and colitis, unspecified; K64.8 Other hemorrhoids; F17.210 Nicotine dependence, cigarettes, uncomplicated; I25.2 Old myocardial infarction
CPT/HCPCS: 43270; 45380; 88305 ×2; 00813; J2704; 813